=== PATIENT | male | born 1990 | race African-American/Black ===

== ENCOUNTER 2017-03-21 12:37 | Emergency (ER) | payer BC, OTHER ==
[2017-03-21] MEDS ORDERED: diPHENhydraMINE PO* 50 MG PO ONE (13:49)
[2017-03-21] MEDS ORDERED: Metoclopramide TAB* 10 MG PO ONE (13:50)
[2017-03-21] MEDS ORDERED: Ibuprofen TAB* 400 MG PO ONE (13:51)
--- NOTE | 2017-03-21 13:58 | UC ---
Headache HPI - HPI Summary HPI Summary: Patient presents with an unremarkable past medical history. He presents today with complaints of recurrent headache. He states last night he had a headache behind his right eye that started around 5-9 pm, he took some Advil, went to sleep and it went away. This morning when he got up the headache returned but it was behind the left eye, which came on gradually, and not the worse pain, described as throbbing, but he then started to have dizziness, lightheadedness and nausea, as well. He also report some mild discomfort of the back of his neck left sided. He could not clearly state if anything made his neck pain better, or worse. He denied any injury, trauma, or new activity that could explain the neck pain. He described it as achy. He states he felt he was listing to the left for about one hour, and then the symptom resolved. He denies any numbness, tingling, or weakness of the extremities. He denies chest pain, sweating, left sided arm pain. - History Of Current Complaint Chief Complaint: [place] Stated Complaint: HEADACHE/DIZZINESS Time Seen by Provider: 03/21/17 13:37 Hx Obtained From: Patient Onset/Duration: Gradual Onset, Lasting Hours, Still Present Onset Of Symptoms: Gradual Initially Headache Was: Mild Currently Pain Is: Moderate Timing: Intermittent, Lasting:, Hours - x two headaches in 24 hours. Character: Throbbing Location of Headache: Frontal Aggravating Factor(s): Bright Lights Allevating Factor(s): Rest Associated Signs And Symptoms: Positive: Dizziness, Nausea, Neck Pain - Risk Factors SAH Risk Factors: -[place] Meningitis Risk Factors: Negative SDH Risk Factors: Male Temporal Arteritis Risk Factors: Negative - Allergies/Home Medications Allergies/Adverse Reactions: Allergies Allergy/AdvReac Type Severity Reaction Status Date / Time No Known Allergies Allergy Verified 03/21/17 13:18 PMH/Surg Hx/FS Hx/Imm Hx Previously Healthy: Yes - Surgical History Surgical History: None - Family History Known Family History: Positive: Hypertension, Other - migraines - Social History Occupation: Student Lives: Alone Alcohol Use: None Substance Use Type: None Smoking Status (MU): Never Smoked Tobacco Have You Smoked in the Last Year: Yes Review of Systems Constitutional: Negative Skin: Negative Eyes: Negative ENT: Negative Respiratory: Negative Cardiovascular: Negative Gastrointestinal: Nausea Genitourinary: Negative Motor: Negative Neurovascular: Negative Musculoskeletal: Negative Neurological: Headache Psychological: Negative All Other Systems Reviewed And Are Negative: Yes Physical Exam Triage Information Reviewed: Yes Appearance: Pain Distress Vital Signs: Initial Vital Signs Temp 98.3 F 03/21/17 13:14 Pulse 87 03/21/17 13:14 Resp 18 03/21/17 13:14 BP 122/74 03/21/17 13:14 Pulse Ox 100 03/21/17 13:14 Vital Signs Reviewed: Yes Eye Exam: Normal ENT Exam: Normal Dental Exam: Normal Neck exam: Normal Neck: Positive: 1 Respiratory Exam: Normal Cardiovascular Exam: Normal Abdominal Exam: Normal Musculoskeletal Exam: Normal Neurological Exam: Normal Skin Exam: Normal Diagnostics - Laboratory ABG Interpretation: prolonged pr internval with st elelvations in chest leads - EKG Cardiac Rate: Bradycardia Headache Course/Dx - Course Course Of Treatment: Patient presents with an unremarkable past medical history. He presents with complaints of headache, dizziness, lightheadedness and ataxia for one hours this morning. A CT brain was obtained and was read by the radiologist as negative. He also noted neck pain and a EKH was obtained and was read by the attending physician and initially by the it service delivery manager Dr. Shepard and he recommended a second EKG which I did obtain and those findings were consistent with the first ekg which showec sinus bradycardia, prolonged pr interval, and st elevation questionable for pericarditis. The CT and EKG was discussed with the patient and my concerns for a possible stroke, that could not be conclusivly be rule out with just CT, and also the patient would need additional testing, labs regarding the EKG. He was in agreement to ER transfer via ambulaance. At the time of discharge the patient was in stable condition, and was transferred via [facility]. The case was discussed with Katherine PICKENS who accepted the patient for transfer. - Differential Dx/Diagnosis Differential Diagnosis/HQI/PQRI: Other - headache neck pain Provider Diagnoses: headache. neck pain Discharge - Discharge Plan Condition: Stable Disposition: [facility] Patient Education Materials: Acute Headache (ED) Referrals: No Primary Care Phys,NOPCP [Primary Care Provider] -
--- NOTE | 2017-03-21 14:37 | RAD ---
HISTORY: Headache COMPARISONS: None TECHNIQUE: Multiple contiguous axial CT scans were obtained of the head without intravenous contrast. FINDINGS: HEMORRHAGE/INFARCT: There is no hemorrhage or acute infarct. MASSES/SHIFT: There is no mass or shift. EXTRA-AXIAL SPACES: There are no extra-axial fluid collections. SULCI AND VENTRICLES: The sulci and ventricles are normal in size and position for the patient's stated age. CEREBRUM: There are no focal parenchymal abnormalities. BRAINSTEM: There are no focal parenchymal abnormalities. CEREBELLUM: There are no focal parenchymal abnormalities. VESSELS: The vessels are grossly normal. PARANASAL SINUSES: The paranasal sinuses are clear. ORBITS: The orbits are unremarkable. BONES AND SOFT TISSUE: No bone or soft tissue abnormalities are noted. OTHER: None IMPRESSION: NO ACUTE INTRACRANIAL PATHOLOGY.
[2017-03-21 15:06] VITALS: BP 125/70
== END 2017-03-21 15:25 | disposition short-term general hospital (02) ==
LOC: UCEAST 12:37
DX: R51 Headache (principal); M54.2 Cervicalgia
CPT/HCPCS: 70450; 93005; 99213; A9270-GY; G0463

== ENCOUNTER 2017-03-21 15:51 | Emergency (ER) | payer BC ==
[2017-03-21 17:17] VITALS: BP 128/92
--- NOTE | 2017-03-21 18:35 | ED ---
Marc Chahal Nilda, scribed for Bethel Tinoco MD on 03/21/17 at 1708 . Headache - HPI Summary HPI Summary: This patient is a 27 year old M BIBA from [facility] to [facility] with a chief complaint of mild headache behind left eye since 1100 this morning (6 hours ago). Patient had headache behind right eye yesterday night which resolved upon waking up this morning. The patient rates the pain 3/10 in severity. Symptoms aggravated by nothing and alleviated by ibuprofen. Patient reports lightheadedness (still present), dizziness, difficulty balancing (leaning left while ambulating, resolved), pain on left side of neck, and back pain. - History Of Current Complaint Chief Complaint: EDHeadache Stated Complaint: HEADACHE Time Seen by Provider: 03/21/17 16:34 Hx Obtained From: Patient Onset/Duration: Still Present Currently Pain Is: Current Pain Scale(0-10)= - 3/10, Mild Timing: Constant Location of Headache: Occipital - behind left eye Aggravating Factor: Nothing Allevating Factors: Medication - ibuprofen Associated Signs And Symptoms: Dizziness, Neck Pain - left sided, Other (Noted In Comments) - lightheadedness, back pain, and difficulty ambulating because off balance (resolved) - Allergies/Home Medications Allergies/Adverse Reactions: Allergies Allergy/AdvReac Type Severity Reaction Status Date / Time No Known Allergies Allergy Verified 03/21/17 16:05 PMH/Surg Hx/FS Hx/Imm Hx Sensory History: Denies: Hx Legally Blind EENT History: Denies: Hx Deafness Infectious Disease History: No Infectious Disease History: Denies: Traveled Outside the [place] in Last 30 Days - Family History Known Family History: Positive: Hypertension, Other - migraines - Social History Alcohol Use: None Substance Use Type: Reports: None Smoking Status (MU): Never Smoked Tobacco Have You Smoked in the Last Year: Yes Review of Systems Positive: Other - L-sided neck pain, back pain. Neurological: Other - lightheadedness, dizziness, off-balance and difficulty ambulating (resolved) Positive: Headache All Other Systems Reviewed And Are Negative: Yes Physical Exam Triage Information Reviewed: Yes Vital Signs On Initial Exam: Initial Vitals BP 123/75 03/21/17 16:00 Vital Signs Reviewed: Yes Appearance: Positive: Well-Appearing, No Pain Distress Skin: Positive: Warm, Skin Color Reflects Adequate Perfusion, Dry Head/Face: Positive: Normal Head/Face Inspection Eyes: Positive: Normal ENT: Positive: Normal ENT inspection Neck: Positive: Supple, Nontender Respiratory/Lung Sounds: Positive: Clear to Auscultation, Breath Sounds Present Cardiovascular: Positive: RRR Abdomen Description: Positive: Nontender, Soft Bowel Sounds: Positive: Present Musculoskeletal: Positive: Normal Neurological: Positive: Normal Psychiatric: Positive: Normal, Affect/Mood Appropriate - [place] Coma Scale Coma Scale Total: 15 Diagnostics - Vital Signs Vital Signs Temp Pulse Resp BP Pulse Ox 03/21/17 16:04 98.3 F 52 12 123/75 99 03/21/17 16:02 52 98 03/21/17 16:00 123/75 - Laboratory Lab Statement: Any lab studies that have been ordered have been reviewed, and results considered in the medical decision making process. Headache Course/Dx - Course Course Of Treatment: Mr. Gu presented from [facility]. He had a MERAZ behind his right eye (throbbing) yesterday and took tylenol with relief. This AM he developed a slight pain in the back of the left side of his neck, a similar MERAZ behind his left eye and mild lightheadedness that he can't characterize well. He denies gait, speech or visul problems. He says now that his symptoms have all disappeared but for a very slight lightheadedness. He never had any CP. His exam was completely normal. I spoke with Dr. Wooten who felt that he did not need any additional W/U from that which was done in the [facility]. - Diagnoses Provider Diagnoses: Headache - Physician Notifications Discussed Care Of Patient With: Monica Wooten - Neuro Time Discussed With Above Provider: 17:02 Instructed by Provider To: Other - Agrees with plan to D/C patient. Discharge - Discharge Plan Condition: Stable Disposition: HOME Patient Education Materials: General Headache (ED) Referrals: [facility] [Outside] - 1 Week Additional Instructions: RETURN TO THE EMERGENCY DEPARTMENT FOR CHANGING OR WORSENING SYMPTOMS. The documentation as recorded by the Marc hernandez Nilda accurately reflects the service I personally performed and the decisions made by me, Bethel Tinoco MD.
== END 2017-03-21 17:24 | disposition home or self-care (01) ==
LOC: ED 15:51
DX: R51 Headache (principal); R42 Dizziness and giddiness; M54.2 Cervicalgia
CPT/HCPCS: 99282